=== PATIENT | female | born 1930 | race Caucasian/White ===

== ENCOUNTER → 2018-12-10 | Outpatient (CLI) | payer MEDICARE ==
[~2018-12-10] MED LIST: ASPIRIN81 M1 PO; B COMPLEX PO; CARDIZEM CD120 MG PO; CENTRUM1 TAB PO; CLARITIN10 MG PO; COUMADIN5 M2 PO; Coumadin2.5 MG PO; DIGOXIN0.125 MG PO; FLORINEF0.1 MG PO; OSCAL,OYSTER S500 MG PO; VITAMIN D1000 IU PO; [UNRECOGNIZED DRUG - OTHER] PO
[2018-12-10 10:15] LABS: HEMATOCRIT 42.9 % (37.0-47.0); HEMOGLOBIN 13.7 g/dl (12.0-16.0); MEAN CELL VOLUME 98.2 fl (81.0-99.0); MEAN CORPUSCULAR HGB 31.4 pg (27.0-31.0); MEAN CORPUSCULAR HGB CONC 31.9 g/dl (33.0-37.0); MEAN PLATELET VOLUME 9.5 fl (9.6-12.3); RED BLOOD COUNT 4.37 10*6/uL (4.10-5.10); RED CELL DISTRI WIDTH 12.7 % (0-14.5); WHITE BLOOD COUNT 9.4 10*3/uL (4.8-10.8)
[2018-12-10 10:44] LABS: INTERNATIONAL NORM RATIO 2.6 (2.0-3.5)
[2018-12-10 10:46] LABS: ALBUMIN 3.7 gm/dl (3.1-4.5); ALKALINE PHOSPHATASE 97 U/L (45-117); BUN 19 mg/dl (7-24); CHLORIDE 106 mmol/L (98-107); CHOLESTEROL 210 mg/dL (<200); CREATININE 0.93 mg/dL (0.55-1.02); SGOT/AST 18 IU/L (3-35); SGPT/ALT 26 U/L (12-78); SODIUM 142 mmol/L (136-145); TOTAL PROTEIN 6.8 gm/dL (6.4-8.2); TRIGLYCERIDES 137 mg/dl (<150); VLDL CHOLESTEROL 27 mg/dL (6-40)
[2018-12-10 10:58] LABS: DIGOXIN 2.01 ng/ml (0.8-2.0); HDL CHOLESTEROL 71 mg/dl (40-60); LDL CHOLESTEROL 112 mg/dL (9-159)
== END | disposition home or self-care (01) ==
LOC: LAB 09:31
PROVIDERS: Family Medicine
DX: E55.9 Vitamin D deficiency, unspecified (principal); I50.9 Heart failure, unspecified; M81.0 Age-related osteoporosis without current pathological fracture; E78.00 Pure hypercholesterolemia, unspecified; R53.83 Other fatigue

== ENCOUNTER → 2019-02-13 | Outpatient (CLI) | payer MEDICARE ==
[2019-02-13 14:47] LABS: INTERNATIONAL NORM RATIO 2.3 (2.0-3.5)
== END | disposition home or self-care (01) ==
LOC: LAB 14:05
PROVIDERS: Family Medicine
DX: Z79.01 Long term (current) use of anticoagulants (principal)

== ENCOUNTER 2019-04-23 01:06 | Emergency (ER) | payer MEDICARE ==
[~2019-04-23] VITALS: Ht 147.3 cm; Wt 46.4 kg
[~2019-04-23 01:06] MED LIST changes: +CARDIZEM CD120 M2 PO; -CARDIZEM CD120 MG PO; +VITAMIN D-32000 UNI1 PO; -VITAMIN D1000 IU PO
[2019-04-23 01:40] LABS: INTERNATIONAL NORM RATIO 2.4 (2.0-3.5)
== END 2019-04-23 03:50 | disposition home or self-care (01) ==
LOC: ED 01:06
PROVIDERS: Emergency Medicine
DX: S85.9 Injury of unspecified blood vessel at lower leg level (principal); I10 Essential (primary) hypertension; I48.91 Unspecified atrial fibrillation; K21.9 Gastro-esophageal reflux disease without esophagitis; Z88.8 Allergy status to other drugs, medicaments and biological substances; Z79.899 Other long term (current) drug therapy; Z79.01 Long term (current) use of anticoagulants; Z86.73 Personal history of transient ischemic attack (TIA), and cerebral infarction without residual deficits; W22.8XXA Striking against or struck by other objects, initial encounter; Y93.89 Activity, other specified; Y92.89 Other specified places as the place of occurrence of the external cause; Y99.8 Other external cause status

== ENCOUNTER 2019-04-25 09:38 | Emergency (ER) | payer MEDICARE ==
[~2019-04-25] VITALS: Ht 147.3 cm; Wt 56.2 kg
--- NOTE | ~2019-04-25 | EKG ---
[place], [place] ELECTROCARDIOGRAM REPORT NAME: CHETAN MELLO UNIT #: [id number] ROOM: DOCTOR: EPIPHANY DRAFT REPORT BIRTHDATE: [birth year] [facility] Test Date: 2019-04-25 Test Time: 09:56:19 Pat Name: CHETAN MELLO Department: Room: Gender: F Sanitation Technician: : 1930 Requested By: JONI HIDALGO Order Number: [id number] Reading MD: Josue Fisher MD Measurements Intervals [place] Rate: 70 P: 69 [place]: 177 QRS: 47 QRSD: 87 T: 33 QT: 374 QTc: 404 Interpretive Statements Sinus rhythm RSR' in V1 or V2, right VCD or RVH Compared to ECG 12/25/2018 00:33:54 No significant changes Electronically Signed On 04-26-2019 12:20:52 PST by Josue Fisher MD CM:EKGRPT:ELECTROCARDIOGRAM REPORT [id number] JONI MORRISSEY DRAFT REPORT JONI HIDALGO M.D.
[2019-04-25 10:05] LABS: HEMATOCRIT 40.1 % (37.0-47.0); MEAN CELL VOLUME 96.9 fl (81.0-99.0); MEAN CORPUSCULAR HGB 31.4 pg (27.0-31.0); MEAN CORPUSCULAR HGB CONC 32.4 g/dl (33.0-37.0); MEAN PLATELET VOLUME 9.4 fl (9.6-12.3); PLATELET COUNT AUTOMATED 274 10*3/uL (130-400); RED BLOOD COUNT 4.14 10*6/uL (4.10-5.10); RED CELL DISTRI WIDTH 13.2 % (0-14.5); WHITE BLOOD COUNT 10.8 10*3/uL (4.8-10.8)
[2019-04-25 10:19] LABS: ALBUMIN 3.5 gm/dl (3.1-4.5); ALKALINE PHOSPHATASE 92 U/L (45-117); BUN 16 mg/dl (7-24); CHLORIDE 107 mmol/L (98-107); CREATININE 0.85 mg/dL (0.55-1.02); POTASSIUM 3.9 mmol/L (3.5-5.1); SGOT/AST 18 IU/L (3-35); SGPT/ALT 20 U/L (12-78); SODIUM 141 mmol/L (136-145); TOTAL PROTEIN 6.8 gm/dL (6.4-8.2)
[2019-04-25 10:21] LABS: INTERNATIONAL NORM RATIO 2.9 (2.0-3.5)
[2019-04-25 10:27] LABS: ATYPICAL LYMPHS 6 % (0-0); PLATELET SUFFICIENCY NORMAL (NORMAL); TOTAL CELLS COUNTED 100 #CELLS
[2019-04-25] MEDS ORDERED: KEFLEX500 M1 PO (11:55)
== END 2019-04-25 12:00 | disposition home or self-care (01) ==
LOC: ED 09:38
PROVIDERS: Emergency Medicine
DX: S80.12XA Contusion of left lower leg, initial encounter (principal); L03.116 Cellulitis of left lower limb; I48.91 Unspecified atrial fibrillation; K21.9 Gastro-esophageal reflux disease without esophagitis; Z88.8 Allergy status to other drugs, medicaments and biological substances; Z79.899 Other long term (current) drug therapy; Z79.01 Long term (current) use of anticoagulants; Z86.718 Personal history of other venous thrombosis and embolism; W22.8XXA Striking against or struck by other objects, initial encounter; Y93.89 Activity, other specified; Y92.89 Other specified places as the place of occurrence of the external cause; Y99.8 Other external cause status

== ENCOUNTER 2019-04-27 13:11 | Inpatient (IN) | payer MEDICARE ==
[~2019-04-27] VITALS: Ht 147.3 cm; Wt 44.2 kg
[~2019-04-27 13:11] MED LIST changes: +KEFLEX500 M1 PO
[2019-04-27 13:12] VITALS: BP 91/62
[2019-04-27 14:08] LABS: BASO % 0.3 % (0.0-1.0); EOS # 0.1 10*3/uL (0.0-0.4); EOS % 0.4 % (1.0-4.0); HEMATOCRIT 35.4 % (37.0-47.0); HEMOGLOBIN 11.7 g/dl (12.0-16.0); LYMPH # 3.1 10*3/uL (1.3-4.4); LYMPH % 22.6 % (27.0-41.0); MEAN CORPUSCULAR HGB 32.1 pg (27.0-31.0); MEAN CORPUSCULAR HGB CONC 33.1 g/dl (33.0-37.0); MEAN PLATELET VOLUME 9.4 fl (9.6-12.3); MONO # 1.1 10*3/uL (0.1-1.0); MONO % 7.7 % (3.0-9.0); NEUT # 9.4 10*3/uL (2.3-7.9); NEUT % 68.2 % (47.0-73.0); PLATELET COUNT AUTOMATED 278 10*3/uL (130-400); RED BLOOD COUNT 3.65 10*6/uL (4.10-5.10); RED CELL DISTRI WIDTH 13.2 % (0-14.5); WHITE BLOOD COUNT 13.8 10*3/uL (4.8-10.8)
[2019-04-27 14:16] LABS: ACT PARTIAL THROMBO TIME 42.6 SECONDS (20.0-32.1); INTERNATIONAL NORM RATIO 2.9 (2.0-3.5)
[2019-04-27 14:25] LABS: ALBUMIN 3.5 gm/dl (3.1-4.5); ALKALINE PHOSPHATASE 90 U/L (45-117); BUN 20 mg/dl (7-24); CHLORIDE 107 mmol/L (98-107); CREATININE 0.88 mg/dL (0.55-1.02); LIPASE 98 U/L (73-393); SGOT/AST 14 IU/L (3-35); SGPT/ALT 19 U/L (12-78); SODIUM 139 mmol/L (136-145); TOTAL PROTEIN 6.6 gm/dL (6.4-8.2)
[2019-04-27 14:31] LABS: TROPONIN I < 0.015 ng/ml (<0.045)
[2019-04-27 14:40] LABS: DIGOXIN 1.26 ng/ml (0.8-2.0)
--- NOTE | 2019-04-27 15:08 | NUR ---
PATIENT TAKEN TO BSC. NO ISSUES OR CONCERNS AT THIS TIME.
[2019-04-27 15:30] VITALS: BP 102/63
--- NOTE | 2019-04-27 16:30 | NUR ---
A 88, admitted to 5E, under the services of IVONE John DO with a diagnosis of Ambulatory dysfunction. Chief complaint is cellulitis of LLE. Patient arrived via stretcher from ER. Monitor applied. Initial assessment completed. Vital signs taken and recorded. IVONE JOHN DO notified of admission to the unit. Orders received. See assessment for past medical history, medications and allergies. Patient and/or family oriented to unit. [address] visitation policy reviewed. Clothing/patient valuable form completed. ADORE BOURGEOIS
[2019-04-27 17:00] VITALS: BP 133/62
[2019-04-27] MEDS ORDERED: JANTOVEN1 MG PO (18:28)
[2019-04-27] MEDS ORDERED: ALENDRONATE SOD70 M1 PO (18:28)
--- NOTE | 2019-04-27 19:00 | NUR ---
ASSUMED CARE FOR THIS PT AT THIS TIME. NO C/O VOICED AT PRESENT TIME. BED IN LOW POSITION W/WHEELS LOCKED AND ALARM ON. CALL LIGHT IN REACH.
[2019-04-27 20:00] VITALS: BP 138/53
--- NOTE | 2019-04-27 22:17 | NUR ---
PT MEDICATED W/TYLENOL FOR C/O LLE PAIN. LLE REMAINS RED/WARM/TENDER/SWOLLEN. WILL MONITOR. CALL LIGHT IN REACH.
[2019-04-28] VITALS: BP 121/46
--- NOTE | 2019-04-28 06:15 | NUR ---
CHETAN MELLO [id number] Please refer to the physician's history and physical for past medical history, comorbid conditions, and allergies. Diagnosis: AMBULATORY DYSFUNCTION,CELLULITIS OF LOWER EXTREMI [place] Score: 22,LOW OR NO RISK WOUND DESCRIPTIONS: Wound Number: 1 Location of the wound: Left lower extremity Type of wound: hematoma Size: 19.0cm x 29.0cm x <0.1cm Tunneling: none Undermining: none Sinus Tract: none Presence of Exudate: none Amount: None Color: Purple, red, yellow Odor: None Periwound Skin Appearance: Edema Wound edges: closed Pain (associated with wound): tender to touch How does patient state this happened? pt stated this happened last saturday while she was getting in her granddaughters car she bumped it and she stated she was seen here three times before being admitted by Dr. Knowles. This nurse asked her about follow up care and she stated if the area opens up she will follow in the wound care center upon discharge. Surface the patient is resting on: Isoflex SKIN PREVENTION RECOMMENDATION: 1. Pressure redistribution support surface as appropriate 2. Elevate heels 3. Remove boots/TEDS every shift and reapply 4. Head of bed 30 degrees as tolerated 5. Assess nutrition and hydration 6. Manage moisture 7. Avoid the use of containment devices while in bed 8. Use absorptive products on surfaces limit layers of linens on bed 9. Turn and reposition every 1-2 hours in bed and every 1 hour in chair as tolerated 10. Weight shifts every 15 minutes while up in chair 11. Offloading with pillows or device to keep heels elevated off bed 12. Monitor skin at least every shift 13. Inspect under medical devices twice a day WOUND TREATMENT RECOMMENDATIONS: May need surgical consult if ultrasound studies suggest.
[2019-04-28 06:31] LABS: HEMATOCRIT 32.1 % (37.0-47.0); HEMOGLOBIN 10.3 g/dl (12.0-16.0); MEAN CELL VOLUME 99.1 fl (81.0-99.0); MEAN CORPUSCULAR HGB 31.8 pg (27.0-31.0); MEAN CORPUSCULAR HGB CONC 32.1 g/dl (33.0-37.0); MEAN PLATELET VOLUME 9.8 fl (9.6-12.3); PLATELET COUNT AUTOMATED 242 10*3/uL (130-400); RED BLOOD COUNT 3.24 10*6/uL (4.10-5.10); RED CELL DISTRI WIDTH 13.3 % (0-14.5); WHITE BLOOD COUNT 9.6 10*3/uL (4.8-10.8)
[2019-04-28 06:49] LABS: CHLORIDE 110 mmol/L (98-107); POTASSIUM 4.3 mmol/L (3.5-5.1); SODIUM 142 mmol/L (136-145)
[2019-04-28 07:11] LABS: ALBUMIN 2.7 gm/dl (3.1-4.5); ALKALINE PHOSPHATASE 81 U/L (45-117); ATYPICAL LYMPHS 2 % (0-0); BUN 20 mg/dl (7-24); CHOLESTEROL 163 mg/dL (<200); DIGOXIN 1.23 ng/ml (0.8-2.0); HDL CHOLESTEROL 62 mg/dl (40-60); LDL CHOLESTEROL 92 mg/dL (9-159); PHOSPHOROUS 2.9 mg/dL (2.5-4.9); PLATELET SUFFICIENCY NORMAL (NORMAL); SGOT/AST 13 IU/L (3-35); SGPT/ALT 17 U/L (12-78); TOTAL CELLS COUNTED 100 #CELLS; TOTAL PROTEIN 5.4 gm/dL (6.4-8.2); TRIGLYCERIDES 46 mg/dl (<150); VLDL CHOLESTEROL 9 mg/dL (6-40)
[2019-04-28 07:22] LABS: INTERNATIONAL NORM RATIO 3.6 (2.0-3.5)
--- NOTE | 2019-04-28 07:34 | NUR ---
Nursing screen and Occupational Therapy referral received. Thank you. April Alfredo OTR/l
[2019-04-28 07:49] LABS: VITAMIN D, 25-HYDROXY 51.8 ng/mL (30-100)
[2019-04-28 08:00] VITALS: BP 137/45
--- NOTE | 2019-04-28 08:03 | NUR ---
PHYSICAL THERAPY Screen received as well as orders for Physical Therapy will follow thank you Ama Talamantes PT
--- NOTE | 2019-04-28 09:42 | NUR ---
[place] given per patient c/o pain in LLE that is rated 7/10. Will monitor.
--- NOTE | 2019-04-28 10:30 | NUR ---
[place] not effective. Patient states it might have helped a little bit. Patient became nauseated after ambulating to bathroom.
--- NOTE | 2019-04-28 11:14 | NUR ---
[facility] Worker in to talk to patient. Patient states lives at HOME with ALONE WITH NIECE LOOKING IN ON HER. There are FEW steps in the home. Physician: DAVION Pharmacy: [facility] Home health services: NONE Patient's level of ADLs: INDEPENDENT Patient has working utilities: YES DME: [employer] Follow-up physician's appointment after d/c: WILL BE MADE BY HOSPITALIST NURSE DIRECTOR ON DISCHARGE Does patient want to access PORTAL?: NO Discharge plan PT LIVES AT HOME ALONE BUT HAS A NEICE THAT LOOKS IN ON HER. STATES SHE WOULD LIKE TO GO HOME BUT IF SHE NEEDS TO GO SOMEWHERE SHE WOULD LIKE TO GO TO [facility]HAB SU[facility]ES. EXPLAINED TO PT I WOULD CHECK FOR BED AVAILABILTIY AT REHAB SUITES BUT THEY ARE USUALLY FULL. WILL CONTINUE TO FOLLOW. WILL HAVE A RIDE HOME PER PT.. DEBRA HERNANDEZ
--- NOTE | 2019-04-28 11:20 | NUR ---
Patient became nauseated and had 1 epidsode of emesis.
--- NOTE | 2019-04-28 11:56 | NUR ---
INFORMED PT THAT THERE ARE NO BEDS AVAILABLE AT REHAB SU[facility], PT SECOND CHOICE IS [facility]. WILL CONTINUE TO FOLLOW.
[2019-04-28 12:00] VITALS: BP 134/83
--- NOTE | 2019-04-28 13:00 | NUR ---
PRECERT is required. Will need PT/OT Evals to complete referral. ALAYNA received notice the patient would like to be referred to [facility] since has no beds available. ALAYNA faxed referral to [facility]. -ALAYNA Benton
--- NOTE | 2019-04-28 13:45 | NUR ---
Occupational Therapy evaluation completed on 5 with full eval to follow. Precautions include fall risk;bed/chair alarm,impaired cognition,moderate complexity level 54178. Recomend OT per POC and SNF to enable retur home alone at indep level. Thank you. Amanda Alfredo OTr/l
--- NOTE | 2019-04-28 14:46 | NUR ---
Nutritional Support Services Note: Labs reflect moderation protein calorie malnutrition with albumin at 2.7. Previous admission weight on 01/25/19 was 91#. Cuurrent wt 98#. Noted to be a 2-13# weight loss. Pt is at normal weight for her. Recommend Ensure po TID with meals to help increase kcal and protein. Will follow as needed. Pt is eating 100% of meals. Constance Philippe Rdn Ld
--- NOTE | 2019-04-28 15:11 | NUR ---
PHYSICAL THERAPY Pt carolinaal completed pt moderate complexity 30744 recomend SNF at discharge PT to work on transfers, amb, strengthening, balanc and safety. Thank you Ama Talamantes PT
--- NOTE | 2019-04-28 15:56 | NUR ---
JONAH IS OUT OF NENTWORK WITH PT INSURANCE AND SHE HAS NO OUT OF NETWORK BENEFITS. WILL INFORM PT AND SEE WHAT HER PLANS ARE FOR DISCHARGE.
[2019-04-28 16:00] VITALS: BP 131/44
--- NOTE | 2019-04-28 16:08 | NUR ---
SPOKE WITH PT AND SHE WOULD LIKE REFERRAL MADE TO [facility] TO SEE IF THEY WILL TAKE HER INSURANCE.
--- NOTE | 2019-04-28 19:00 | NUR ---
ASSUMED CARE FOR THIS PT AT THIS TIME. NO C/O VOICED. LLE HEMATOMA REMAINS INTACT.
[2019-04-28 20:00] VITALS: BP 146/48
[2019-04-29] VITALS: BP 140/52
--- NOTE | 2019-04-29 00:02 | NUR ---
PT C/O NAUSEA EARLIER, NO VOMITING. PT TEACHING GIVEN ON PRN ZOFRAN AVAILABLE FOR N/V. PT DENIES ANY FURTHER NAUSEA. CALL LIGHT IN REACH.
--- NOTE | 2019-04-29 05:23 | NUR ---
PT MEDICATED W/TYLENOL FOR C/O LLE PAIN 07/06. PT RESTING QUIETLY IN BED. PT ADVISED IF TYLENOL WAS INEFFECTIVE, SHE HAS NORCO FOR PAIN WELL. PT STATES THE NORCO MADE HER VOMIT YESTERDAY. CALL LIGHT IN REACH W/BED ALARM ON.
[2019-04-29 06:44] LABS: BASO % 0.3 % (0.0-1.0); EOS # 0.1 10*3/uL (0.0-0.4); EOS % 0.9 % (1.0-4.0); HEMATOCRIT 32.9 % (37.0-47.0); HEMOGLOBIN 10.7 g/dl (12.0-16.0); LYMPH # 3.5 10*3/uL (1.3-4.4); LYMPH % 30.3 % (27.0-41.0); MEAN CELL VOLUME 98.5 fl (81.0-99.0); MEAN CORPUSCULAR HGB CONC 32.5 g/dl (33.0-37.0); MEAN PLATELET VOLUME 9.8 fl (9.6-12.3); MONO # 0.9 10*3/uL (0.1-1.0); MONO % 7.7 % (3.0-9.0); NEUT % 60.5 % (47.0-73.0); PLATELET COUNT AUTOMATED 247 10*3/uL (130-400); RED BLOOD COUNT 3.34 10*6/uL (4.10-5.10); RED CELL DISTRI WIDTH 13.2 % (0-14.5); WHITE BLOOD COUNT 11.5 10*3/uL (4.8-10.8)
--- NOTE | 2019-04-29 07:21 | NUR ---
PRECERT is required for SNF. [facility] is out of network. OPERATIONS OFFICER received notice patient would like to be referred to [facility]. OPERATIONS OFFICER faxed new referral to [facility]. -ALAYNA Benton
[2019-04-29 07:31] LABS: INTERNATIONAL NORM RATIO 2.3 (2.0-3.5)
[2019-04-29 08:00] VITALS: BP 130/60
--- NOTE | 2019-04-29 08:00 | NUR ---
VS STABLE- A&O X3, HERIBERTO, COLOR IS GOOD, LEFT LOWER EXTREMITY RED SWOLLEN AND WARM TO TOUCH, OTHERWISE SKIN WARM DRY AND INTACT, CAP REFILL <3, SKIN TURGOR IS NON-TENTING, HEART SOUNDS NORMAL, 70 BPM, LUNGS CLEAR THROUGHOUT, PO2 97% ON R/A, ABD SOFT NON-DISTENDED NON-TENDER, IV SITE IN RIGHT AC NO S/S OF INFECTION, PT PLEASANT AND COOPERATIVE RESTING IN BED, NO FURTHER COMPLAINTS AT THIS TIME WILL CONTINUE TO ASSESS. QUOC DE SANTIAGO SPNRCC
--- NOTE | 2019-04-29 08:53 | NUR ---
PT COMPLAIN OF "NAUSEA". REQUESTED FOR MED. ZOFRAN 4MG IVP BY NADINE ATKINS RN. WILL CONTINUE TO ASSESS.
--- NOTE | 2019-04-29 09:10 | NUR ---
PHYSICAL THERAPY Patient seen this am 1:1 for therapy visit and was supine in bed upon therapist arrival. Patient identified by name / and reports 4/10 L LE pain from recent Hematoma. Patient transfers supine to sit EOB with MIN A x 1, then sit to stand, CGA with use of wh walker standing support. Patient ambulates CGA, wh walker, 45'x 2, demonstrating antalgic "step to" gait pattern. Patient needed v/c for improved heel strike and was a little unsteady during all turns. Patient returned to supine in bed and remained with call light, tray table, telephone and bed alarm for safety. Will continue per POC as tolerated, total treatment time 17 minutes. Dionicio Guaman, SAND MILLER
--- NOTE | 2019-04-29 10:16 | NUR ---
ZOFRAN WAS EFFECTIVE. DENIES N/V AT THIS TIME. QUOC DE SANTIAGO SPNRCC
[2019-04-29 12:00] VITALS: BP 132/44
--- NOTE | 2019-04-29 13:16 | NUR ---
PT HAS BEEN REFERRED TO [facility]. WILL REQUIRE A PRECERT BEFORE GOING. WILL CONTINUE TO FOLLOW.
--- NOTE | 2019-04-29 14:30 | NUR ---
OT NOTE Pt was seen this P.M. 1:1 for 15 minute OT session. Upon arrival pt was sitting upright in the recliner. Pt identified by name and and had no complaints at this time. Pt completed sit to stand from chair level with Johny and use of w/w for UE support. Functional mobility was then completed to the bathroom with CGA and use of w/w for UE support. There she trasnferred on to standard commode with CGA and use of grab bar and off with Johny and use of grab bar. Clothing management completed with CGA for safety due to being unsteady when standing without UE support. Pt then completed functional mobility back to the recliner where she was left sitting reclined with call light in hand, tray table in place, and phone in reach. Continue with rec D/C plan to SNF. CLARA Casper/Kamala
[2019-04-29 16:00] VITALS: BP 144/47
[2019-04-29 20:00] VITALS: BP 145/55
--- NOTE | 2019-04-29 21:52 | NUR ---
PRN TYLENOL ADMINISTERED FOR PT C/O LEFT LEG PAIN. SITE IS RED AND SWOLLEN. PT LIMPS ON LEG AND AMBULATES WITH HER WALKER WITH ASSISTANCE TO THE BATHROOM. GAIT IS UNSTEADY. WILL CONTINUE TO MONITOR AND REASSESS.
[2019-04-30] VITALS: BP 134/51
[2019-04-30 06:58] LABS: INTERNATIONAL NORM RATIO 1.7 (2.0-3.5)
--- NOTE | 2019-04-30 07:58 | NUR ---
PRECERT is required for SNF. Awaiting acceptance from [facility] and PRECERT to be started. -ALAYNA Benton
[2019-04-30 08:00] VITALS: BP 139/49
--- NOTE | 2019-04-30 08:40 | NUR ---
PHYSICAL THERAPY Patient seen this am 1;1 for therapy visit and was resting supine in bed upon therapist arrival. Patient identified by name / and voices no c/o's pain at this time. Patient transfers supine to sit EOB with MIN A, then sit to stand CGA x 1. Patient ambulates with use of wh walker, CGA, 50'x 2, demonstrating L side "limping" gait pattern, decreased stride and slow yeni. Patient still fatigues quickly, needing seated rest between gait trials, including v/c for improved walker safety / navigation, especially during all turns. Patient returend to supine in bed and remained with call light, tray table, telephone and bed alarm. Will continue per POC as tolerated, total treatment time 17 minutes. Dionicio Guaman, PATIENT'S LIBRARIAN
--- NOTE | 2019-04-30 08:41 | NUR ---
PT UP AMBULATING IN HALLWAYS WITH WALKER WITH PT/ OT
--- NOTE | 2019-04-30 08:50 | NUR ---
OT NOTE Pt was seen this A.m. 1:1 for 15 minute OT session. Upon arrival pt was supine in bed. Pt identified by name and and had no complaints at this time. Pt transferred supine to sit EOB with Johny for assist with UB. While sitting EOB pt donned B socks with SBA. Sit to stand completed from bed level with Johny and use of w/w for UE support. Functional mobility was then completed into the bathroom with CGA and use of w/w. There she transferred on/off standard commode with CGA and use of grab bar for UE support. Clothing management completed with CGA and toilet hygiene completed with supervision while seated. Pt then stood sink side while washing her hands with CGA for safety. Pt then transferred back into bed sit to supine with SBA. There she was left with call light in hand, tray table in place, and bed alarm activated for safety. Continue with rec D/C plan to SNF. PURA Casper
--- NOTE | 2019-04-30 08:52 | NUR ---
PRECERT is required for SNF. Awaiting acceptance from [facility] to start PRECERT. CENTER DIRECTOR faxed updates to [facility]. -ALAYNA Benton
--- NOTE | 2019-04-30 11:42 | NUR ---
PRECERT has been started for [facility]. Patient has been accepted to [facility]. -ALAYNA Benton
[2019-04-30 12:00] VITALS: BP 153/50
--- NOTE | 2019-04-30 12:00 | NUR ---
DR SEGUNDO AND DR HOLT NOTIFIED OF PT HAVING DIARRHEA
--- NOTE | 2019-04-30 12:12 | NUR ---
PT MEDICATED WITH TYLENOL FOR C/O LEFT LEG PAIN. PT RATES PAIN 5/10 WILL MONITOR
--- NOTE | 2019-04-30 12:24 | NUR ---
PT HAS BEEN ACCEPTED TO [facility] AND PRECERT HAS BEEN STARTED. WILL CONTINUE TO FOLLOW.
[2019-04-30 16:00] VITALS: BP 144/43
[2019-04-30 20:00] VITALS: BP 138/51
--- NOTE | 2019-04-30 20:00 | NUR ---
RESTING IN BED. RESPIRATIONS EASY. LUNGS DIMINISHED, CLEAR. PULSE OX 99% RA. HEMATOMA NOTED TO LLE. CALL LIGHT WITHIN REACH. NO VOICED COMPLAINTS
[2019-05-01] VITALS: BP 158/60
--- NOTE | 2019-05-01 00:30 | NUR ---
SLEEPING. RESPIRATIONS EASY. VSS. CALL LIGHT WITHIN REACH. BED ALARM MAINTAINED FOR SAFETY
--- NOTE | 2019-05-01 03:00 | NUR ---
24 HR chart check completed.
--- NOTE | 2019-05-01 06:00 | NUR ---
SLEPT THROUGHOUT NIGHT WITH NO DISTRESS NOTED. RESPIRATIONS EASY. CALL LIGHT WITHIN REACH. NO VOICED COMPLAINTS THIS SHIFT. BED ALARM MAINTAINED FOR SAFETY
[2019-05-01 06:55] LABS: HEMATOCRIT 35.2 % (37.0-47.0); HEMOGLOBIN 11.3 g/dl (12.0-16.0); MEAN CELL VOLUME 97.8 fl (81.0-99.0); MEAN CORPUSCULAR HGB 31.4 pg (27.0-31.0); MEAN CORPUSCULAR HGB CONC 32.1 g/dl (33.0-37.0); MEAN PLATELET VOLUME 9.8 fl (9.6-12.3); PLATELET COUNT AUTOMATED 295 10*3/uL (130-400); RED CELL DISTRI WIDTH 13.1 % (0-14.5); WHITE BLOOD COUNT 10.8 10*3/uL (4.8-10.8)
--- NOTE | 2019-05-01 07:00 | NUR ---
VS STABLE- A&O X3, HERIBERTO, COLOR IS GOOD, REDNESS SWELLING AND TENDERNESS NOTED TO LEFT LOWER EXTREMITY, SKIN WARM DRY AND INTACT OTHERWISE, CAP REFILL <3, SKIN TURGOR IS NON-TENTING, HEART SOUNDS NORMAL, 68 BPM, LUNG SOUNDS CLEAR DIMINISHED, PO2 97% ON ROOM AIR, RESPIRATIONS 16, ABD SOFT NON-TENDER NON-DISTENDED, BOWEL SOUNDS X4, IV SITE IN RA NO S/S OF INFECTION, PATIENT PLEASANT RESTING IN BED, NO FURTHER COMPLAINTS AT THIS TIME WILL CONTINUE TO ASSESS. QUOC DE SANTIAGO SPCC
[2019-05-01 07:01] LABS: BUN 16 mg/dl (7-24); CHLORIDE 110 mmol/L (98-107); POTASSIUM 3.9 mmol/L (3.5-5.1); SODIUM 143 mmol/L (136-145)
[2019-05-01 07:10] LABS: INTERNATIONAL NORM RATIO 1.4 (2.0-3.5)
--- NOTE | 2019-05-01 07:44 | NUR ---
PT RESTING IN BED NO DISTRESS NOTED. WILL MONITOR
[2019-05-01 07:49] LABS: ATYPICAL LYMPHS 1 % (0-0); PLATELET SUFFICIENCY NORMAL (NORMAL); TOTAL CELLS COUNTED 100 #CELLS
[2019-05-01 08:00] VITALS: BP 132/72
--- NOTE | 2019-05-01 08:35 | NUR ---
OT NOTE PATIENT IDENTIFIED BY NAME AND DATE OF . PATIENT SEEN 1:1 OT THIS DATE 24 MINUTES. PATIENT IN BED UPON ARRIVAL. PATIENT COMPLETED SUPINE TO SIT EOB CGA. COMPLETE ADL SEATD EOB UB BATHING SBA AFTER POLANCO AND LB BATHING MIN A LEFT LE. COMPLETED UB/LB DRESSING MIN A YAYA GOWN AND SOCKS. PATIENT COMPLETED SIT TO STAND FROM BED CGA WITH MIN VERBAL CUES PROPER HAND PLACEMENT AND SAFETY SIT TO STAND FROM BED DURING STANDING COMPONENTS ADL TASKS THIS DATE. COMPLETED SIT TO SUPINE BED CGA. BED ALARM IN TACT AND CALL LIGHT WITHIN REACH. CONTINUE TOWARDS PLAN OF CARE. MAURICE ELIZABETH/Kamala
--- NOTE | 2019-05-01 08:47 | NUR ---
PT STATED "PAIN 4/10" AND REQUESTED MED. NORCO 1 TAB GIVEN PO. WILL CONTINUE TO ASSESS. QUOC DE SANTIAGO SPGRACIA
--- NOTE | 2019-05-01 10:30 | NUR ---
PHYSICAL THERAPY Patient seen this am 1;1 for therapy visit and was supine in bed upon therapist arrival. Patient identified by name / and reports mild 2/10 L LE pain with increased redness around Hematoma area. Patient was very pleasant, transfering supine to sit EOB, MIN A x 1, then sit to stand CGA. Patient ambulates with use of wh walker, 50'x 2, CGA, demonstrating slow yeni, increased fatigue and antalgic gait pattern. Patient returned to EOB sit and following brief rest performed seated B LE therex, all planes, x 15 reps each to increase LE strength. Patient transfers back to supine in bed and remained with call light, tray table, telephone, bed alarm for safety. Will continue per POC as tolerated, total treatment time 23 minutes. Dionicio Guaman, HOG DROPPER
--- NOTE | 2019-05-01 11:58 | NUR ---
CONCRETE [employer]ODUCTS MACHINE OPERATOR was notified the patient does not want to go to [facility] and will be returning home. ALAYNA spoke with Switch Maker Hannah about this and she has already notified RN Hospitalist Coordinator Georgina. ALAYNA notified [facility]. -ALAYNA Benton
[2019-05-01 12:00] VITALS: BP 138/50
--- NOTE | 2019-05-01 12:00 | NUR ---
TAP BUILDER IN TO TALK TO PT. PT STATES SHE FEELS BETTER AND IS DOING BETTER WALKING AND NOW JUST WANTS TO GO HOME. ASKED HER IF SHE HAD HELP AT HOME, SHE STATES SHE HAS A LADY FRIEND THAT COULD HELP HER AND ALSO HER GRAND DAUGHTER. TALKED WITH PT ABOUT HOME HEALTH AND SHE STATES I DON'T THINK I NEED IT. I HAVE A WALKER AND A WHEEL CHAIR AT HOME IF I NEED THEM. ARIELLA IN HOSPITALIST OFFICE INFORMED THAT PT JUST WANTS TO GO HOME NOW AND NOT TO REHAB.
[2019-05-01] MEDS ORDERED: COUMADIN2 M1 PO (14:25)
--- NOTE | 2019-05-01 15:00 | NUR ---
DR HOLT NOTIFIED OF PT HAVING DIARRHEA
--- NOTE | 2019-05-01 15:26 | NUR ---
OCCUPATIONAL THERAPY CO-SIGN I approve of the Occupational Therapy notes written above. OLGA BANKS OTR/Kamala
[2019-05-01 16:00] VITALS: BP 139/45
--- NOTE | 2019-05-01 16:47 | NUR ---
PT REQUESTED AND GIVEN TYLENOL FOR C/O LEFT LE PAIN WILL MONITOR
[2019-05-01 20:00] VITALS: BP 161/65
--- NOTE | 2019-05-01 20:50 | NUR ---
RESTING IN BED. HAD A SCANT AMOUNT OF LOOSE STOOL IN WITH URINE; UNABLE TO OBTAIN C-DIFF SPECIMEN AT THIS TIME. LEFT LEG REDDENED/SWOLLEN. PT. HAS IT ELEVATED. VOICES NO C/O AT THIS TIME. CALL LIGHT WITHIN REACH.
--- NOTE | 2019-05-01 22:30 | NUR ---
PT. UP TO BATHROOM. HAD A SMALL AMOUNT OF LOOSE STOOL BUT HAD URINE IN IT; UNABLE TO OBTAIN SPECIMEN FOR C-DIFF. ASSISTED PT. BACK TO BED. PT. USES WALKER & IS STEADY. CALL LIGHT PUT WITHIN PT'S REACH.
--- NOTE | 2019-05-01 22:38 | NUR ---
MEDICATED WITH TYLENOL FOR C/O LOWER LEFT CALF/LEG PAIN.
[2019-05-02] VITALS: BP 154/53
--- NOTE | 2019-05-02 01:00 | NUR ---
RESTING IN BED WITH EYES CLOSED. TYLENOL EFFECTIVE.
[2019-05-02 07:01] LABS: INTERNATIONAL NORM RATIO 1.4 (2.0-3.5)
[2019-05-02 08:00] VITALS: BP 153/55
--- NOTE | 2019-05-02 11:35 | NUR ---
PHYSICAL THERAPY Patient supine in bed at time of arrival; patient reports having diarrhea for multiple days now, and requesting to use restroom. Patient transitioned supine->sit requiring CGA/SBA with use of bed rail-- increased time for completion due to pain in (L) LE with movement. Patient performed STS transfer EOB->FWW requiring CGA; followed by ambulation with use of FWW to restroom ~10'x1. Pt performed multiple sit<>stand transfers to/from toilet with 1xUE support on grab bar and CGA, with completion of hygiene/dressing tasks. No LOB observed. Pt performed gait training with use of FWW and CGA- over level surfaces, for strength, endurance and balance ~60'x2 incorporation 90 and 180 degree directional changes. Pt exhibits slow, antalgic gait. Pt benefits from cues for walker proximity/managment, postural awareness and increasing LE step height to decrease fall risk. Patient performed bed mobility: sit->supine requiring CGA with use of bed rail. Once in bed, patient required Johny for scooting and re-positioning to [facility]. Patient supine at session end with call light and tray table within reach. patient voiced no new c/o's this date. Monica Hinson, SUPERVISOR TICKET SALES
[2019-05-02 12:00] VITALS: BP 133/47
--- NOTE | 2019-05-02 16:19 | NUR ---
PATIENT DISCHARGED TO HOME.
--- NOTE | 2019-05-06 07:54 | NUR ---
PHYSICAL THERAPY CO-SIGN I approve of the Physical Therapy notes written above. Ama Talamantes PT
== END 2019-05-02 17:18 | disposition home or self-care (01) | DRG 603 ==
LOC: ED 13:11 → EDHOLD 14:58 → 5E 14:58
PROVIDERS: Emergency Medicine; Internal Medicine; Registered Nurse; ADMIT Internal Medicine
DX: L03.116 Cellulitis of left lower limb (principal); D68.69 Other thrombophilia; S80.12XA Contusion of left lower leg, initial encounter; L02.416 Cutaneous abscess of left lower limb; I48.91 Unspecified atrial fibrillation; D72.829 Elevated white blood cell count, unspecified; Z79.01 Long term (current) use of anticoagulants; Z88.8 Allergy status to other drugs, medicaments and biological substances; Z90.710 Acquired absence of both cervix and uterus; Z82.49 Family history of ischemic heart disease and other diseases of the circulatory system; Z80.42 Family history of malignant neoplasm of prostate; Z79.899 Other long term (current) drug therapy

== ENCOUNTER → 2019-05-15 | Outpatient (CLI) | payer MEDICARE ==
[~2019-05-15] MED LIST changes: +ALENDRONATE SOD70 M1 PO; +COUMADIN2 M1 PO; +JANTOVEN1 MG PO
[2019-05-15 14:07] LABS: INTERNATIONAL NORM RATIO 2.7 (2.0-3.5)
== END | disposition home or self-care (01) ==
LOC: LAB 05-12 17:04
PROVIDERS: Family Medicine
DX: I48.91 Unspecified atrial fibrillation (principal); Z79.01 Long term (current) use of anticoagulants

== ENCOUNTER → 2019-06-19 | Outpatient (CLI) | payer MEDICARE ==
[~2019-06-19] MED LIST changes: +CEFUROXIME AXE250 MG PO; +PREDNISONE5 MG PO
[2019-06-19 17:07] LABS: INTERNATIONAL NORM RATIO 2.5 (2.0-3.5)
== END | disposition home or self-care (01) ==
LOC: LAB 13:39
PROVIDERS: Family Medicine
DX: I50.9 Heart failure, unspecified (principal); Z79.01 Long term (current) use of anticoagulants

== ENCOUNTER 2019-06-28 08:40 | Inpatient (IN) | payer MEDICARE ==
[~2019-06-28] VITALS: Ht 142.2 cm; Wt 43.1 kg
[~2019-06-28 08:40] MED LIST changes: -CEFUROXIME AXE250 MG PO; -PREDNISONE5 MG PO
[2019-06-28 08:54] VITALS: BP 118/62
--- NOTE | 2019-06-28 09:00 | NUR ---
PATIENT DENIES WOUNDS. A&OX4.
[2019-06-28 09:13] LABS: BASO % 0.1 % (0.0-1.0); EOS % 0.1 % (1.0-4.0); HEMATOCRIT 39.6 % (37.0-47.0); HEMOGLOBIN 12.8 g/dl (12.0-16.0); LYMPH # 1.6 10*3/uL (1.3-4.4); LYMPH % 18.3 % (27.0-41.0); MEAN CELL VOLUME 96.8 fl (81.0-99.0); MEAN CORPUSCULAR HGB 31.3 pg (27.0-31.0); MEAN CORPUSCULAR HGB CONC 32.3 g/dl (33.0-37.0); MONO # 0.9 10*3/uL (0.1-1.0); MONO % 10.1 % (3.0-9.0); NEUT # 6.2 10*3/uL (2.3-7.9); NEUT % 71.1 % (47.0-73.0); PLATELET COUNT AUTOMATED 251 10*3/uL (130-400); RED BLOOD COUNT 4.09 10*6/uL (4.10-5.10); RED CELL DISTRI WIDTH 13.3 % (0-14.5); WHITE BLOOD COUNT 8.7 10*3/uL (4.8-10.8)
[2019-06-28 09:28] LABS: ACT PARTIAL THROMBO TIME 40.7 SECONDS (20.0-32.1)
[2019-06-28 09:30] LABS: ALBUMIN 3.4 gm/dl (3.1-4.5); ALKALINE PHOSPHATASE 96 U/L (45-117); BUN 18 mg/dl (7-24); CHLORIDE 106 mmol/L (98-107); CREATININE 0.98 mg/dL (0.55-1.02); POTASSIUM 3.8 mmol/L (3.5-5.1); SGOT/AST 16 IU/L (3-35); SGPT/ALT 20 U/L (12-78); SODIUM 138 mmol/L (136-145); TOTAL PROTEIN 6.7 gm/dL (6.4-8.2)
[2019-06-28 09:31] LABS: TROPONIN I < 0.015 ng/ml (<0.045)
[2019-06-28 09:40] LABS: DIGOXIN 1.06 ng/ml (0.8-2.0)
--- NOTE | 2019-06-28 10:12 | NUR ---
PATIENT TAKEN TO 5TH FLOOR AT THIS TIME. BEDSIDE REPORT GIVEN TO AMANDA FLOWERS AT BEDSIDE.
--- NOTE | 2019-06-28 10:29 | NUR ---
A 88, admitted to , under the services of BONIFACIO Gilliam MD with a diagnosis of FLU LIKE ILLNESS. Chief complaint is FEELING WEAK AT HOME. Patient arrived via stretcher from ER. Vital signs taken and recorded. BONIFACIO GILLIAM MD notified of admission to the unit. Orders received. See assessment for past medical history, medications and allergies. Patient and/or family oriented to unit. [facility] visitation policy reviewed. Clothing/patient valuable form completed. AMANDA HENRIQUEZ
[2019-06-28] MEDS ORDERED: JANTOVEN1 MG PO ×2 (10:47→10:48)
--- NOTE | 2019-06-28 14:15 | NUR ---
RSTING QUIETLY SINCE ADMISSION,IV FLUIDS HAVE BEEN STARTED,POOR APPETITE MEDS HAVE BEEN RECONCILED WITH LIST FROM PT
[2019-06-28 16:00] VITALS: BP 140/55
--- NOTE | 2019-06-28 21:58 | NUR ---
PATIENT RESTING WITH NO NEEDS MADE. DENIES PAIN. BED IN LOWEST POSITION, CALL LIGHT IN REACH
[2019-06-29] VITALS: BP 160/78
--- NOTE | 2019-06-29 02:57 | NUR ---
24 HR chart check completed.
[2019-06-29 06:32] LABS: BASO % 0.4 % (0.0-1.0); EOS # 0.1 10*3/uL (0.0-0.4); EOS % 1.6 % (1.0-4.0); HEMATOCRIT 36.7 % (37.0-47.0); HEMOGLOBIN 11.8 g/dl (12.0-16.0); LYMPH # 3.1 10*3/uL (1.3-4.4); LYMPH % 42.5 % (27.0-41.0); MEAN CELL VOLUME 96.1 fl (81.0-99.0); MEAN CORPUSCULAR HGB 30.9 pg (27.0-31.0); MEAN CORPUSCULAR HGB CONC 32.2 g/dl (33.0-37.0); MEAN PLATELET VOLUME 8.9 fl (9.6-12.3); MONO # 0.8 10*3/uL (0.1-1.0); MONO % 11.1 % (3.0-9.0); NEUT # 3.3 10*3/uL (2.3-7.9); NEUT % 44.3 % (47.0-73.0); PLATELET COUNT AUTOMATED 245 10*3/uL (130-400); RED BLOOD COUNT 3.82 10*6/uL (4.10-5.10); RED CELL DISTRI WIDTH 13.4 % (0-14.5); WHITE BLOOD COUNT 7.4 10*3/uL (4.8-10.8)
[2019-06-29 06:40] LABS: INTERNATIONAL NORM RATIO 1.7 (2.0-3.5)
[2019-06-29 06:47] LABS: BUN 14 mg/dl (7-24); CHLORIDE 110 mmol/L (98-107); POTASSIUM 3.9 mmol/L (3.5-5.1); SODIUM 139 mmol/L (136-145)
--- NOTE | 2019-06-29 07:30 | NUR ---
VITAL SIGNS ARE STABLE AT THIS TIME. THE PATIENT IS UP IN BED. A&Ox3. HERIBERTO. SHE IS PLEASANT, COOPERATIVE AND APPROPRIATE. HEART SOUNDS ARE NORMAL. LUNGS ARE DIMINISHED BUT CLEAR. THE PATIENT DOES STATE SHE OCASSIONALLY HAS A NON PRODUCTIVE COUGH. ABDOMEN IS SOFT, NON TENDER AND NON DISTENDED. BSX4. SKIN TURGOR IS GOOD AND NON TENDING. SKIN IS WARM, PINK AND DRY. CAPILLARY REFILL IS LESS THAN 3 SECONDS. 22G IV TO THE LEFT ANTECUBITAL, IT IS INTACT AND FLUSHES WITH EASE. THERE IS NO SURROUNDING REDNESS OR SWELLING TO THE SITE. THE PATIENT HAS NO COMPLAINTS AT THIS TIME. WILL COTNINUE TO MONITOR PATIENT. CHRISTIANO WEBB SPCC
[2019-06-29 08:00] VITALS: BP 138/84
--- NOTE | 2019-06-29 08:30 | NUR ---
PT RESTING IN BED WITH HOB ELEVATED. RESP-EASY AND REGULAR. NO C/O AT THIS TIME. LUNGS DIMINISHED T/O. BED ALARM ON. STUDENT NURSE WITH PT TODAY. CALL LIGHT IN REACH. WILL CON'T TO MONITOR.
--- NOTE | 2019-06-29 08:38 | NUR ---
DR. BAKER IN TO SEE PATIENT. SEE NEW ORDERS. CHRISTIANO WEBB SPNRCC
--- NOTE | 2019-06-29 09:00 | NUR ---
Water Team Leader in to talk to patient. Patient states lives at home alone with her granddaughter who lives in [place] checking in on her periodically. There are 0 steps in the home. There is a wheelchair ramp and a stair glide. Physician: Dr. Man Knowles Pharmacy: [facility] health services: would like [facility] or rehab, unsure at this time Patient's level of ADLs: MINIMAL ASSIST Patient has working utilities: yes DME: walker Follow-up physician's appointment after d/c: she prefers to make her own follow up appt Does patient want to access PORTAL?: no Discharge plan discussed with patient. She lives at home alone with her granddaughter checking in on her periodically. Discussed short term rehab and home health care services. She would like to wait to see how she works with therapy before making a decision. She states she is normally independent in her ADLs and will ambulate with a walker at night time. Her neighbor can provide transportation on discharge. RYAN NICHOLS
--- NOTE | 2019-06-29 09:10 | NUR ---
PHYSICAL THERAPY Yolyal completed pt moderate level of complexity [id number] full report to follow recomend SNF at discharge. PT to work on transfers,balance,strengthening and ambulation. Ama Talamantes PT
--- NOTE | 2019-06-29 09:10 | NUR ---
Occupational therapy orders received and OT evaluation completed in full on floor five. Patient precautions include fall risk, ww use, weakness, and bed alarm. Per OT eval, OT recommends a SNF. Patient would benefit from continued OT treatment to maximize safety and independence with ADLs, mobility, and transfers. Patient complexity is low, 62089. Thank you for the referral. Serina Zamarripa, OTR/L
--- NOTE | 2019-06-29 09:26 | NUR ---
PATIENTS BILATERAL NOSTRILS WERE SWABBED FOR RESPIRATORY VIRUS EVALUATION. SHE TOLERATED WELL. SENT TO LAB. WILL CONTINUE TO MONITOR PATIENT. CHRISTIANO WEBB GRACIA.
--- NOTE | 2019-06-29 09:40 | NUR ---
PATIENT TAKEN TO CT VIA WHEEL CHAIR. PATIENT IN STABLE CONDITION. CHRISTIANO WEBB SPKEVINCC
--- NOTE | 2019-06-29 09:58 | NUR ---
PATIENT RETURNED FROM CT VIA WHEEL CHAIR. STABLE CONDITION. PATIENT ASSISTED BACK INTO HER CHAIR. CHAIR ALARM IS INTACT. WILL CONTINUE TO MONITOR PATIENT. CHRISTIANO RAMOS
--- NOTE | 2019-06-29 11:30 | NUR ---
THE PATIENT IS BACK IN BED TO EAT HER LUNCH. BED ALARM IS INTACT. WILL CONTINUE TO MONITOR PATIENT. CHRISTIANO WEBB GRACIA
--- NOTE | 2019-06-29 11:40 | NUR ---
Nutritional Supporpt Services Note: Appetite was poor per patient due to her not feeling well. She ate 100% for breakfast this morning. Ht.4'8 Wt.95# BMI 21.4- appropriate weight. She refuses a supplement at this time, but will send her a night snack. Labs are wnl. She lives at home alone, encouraged healthy eating. Will follow if needed. Constance Philippe Rdn Ld
[2019-06-29 11:41] VITALS: BP 154/60
--- NOTE | 2019-06-29 11:49 | NUR ---
Patient has received auth for [facility] and is ok to go if medically stable for discharge.
--- NOTE | 2019-06-29 11:54 | NUR ---
Beam Builder in to see patient. Discussed therapy recommending SNF on discharge. She is agreeable. When provided with a list of facilities she chose 1. [facility] [place] and 2. [facility]. tactical deception plans officer notified.
--- NOTE | 2019-06-29 12:31 | NUR ---
Patient requesting [facility]. Faxed demographics to [facility] to check for out of network benefits and faxed referral to [facility]. Requires precert. waiting on review/acceptance.
--- NOTE | 2019-06-29 12:41 | NUR ---
THE PATIENT IS RESTING WITH HER EYES CLOSED IN BED AT THIS TIME. SHE IS EASILY AROUSABLE. BED ALARM INTACT. CALL LIGHT WITHIN REACH. PATIENT HAS NO COMPLAINTS AT THIS TIME. WILL CONTINUE TO MONITOR PATIENT. CHRISTIANO RAMOS
--- NOTE | 2019-06-29 14:36 | NUR ---
[facility] stating patient looks good medically, they are checking benefits on patients insurance. She will require precert.
[2019-06-29 16:00] VITALS: BP 134/50
--- NOTE | 2019-06-29 16:20 | NUR ---
PT RESTING IN BED. RESP-EASY AND REGULAR. NO C/O AT THIS TIME. CALL LIGHT IN REACH. BED ALARM ON. SEE SHIFT ASSESSMENT.
--- NOTE | 2019-06-29 19:27 | NUR ---
PATIENT RESTING IN BED WITH NO NEEDS MADE. DENIES PAIN, OR SHORTNESS OF BREATH. STATES SHE IS FEELING MUCH BETTER THIS EVENING. BED IN LOW POSITION, CALL LIGHT IN REACH
--- NOTE | 2019-06-29 23:32 | NUR ---
24 HR chart check completed.
[2019-06-30] VITALS: BP 155/54
[2019-06-30 06:26] LABS: HEMATOCRIT 37.6 % (37.0-47.0); HEMOGLOBIN 12.2 g/dl (12.0-16.0); MEAN CELL VOLUME 97.4 fl (81.0-99.0); MEAN CORPUSCULAR HGB 31.6 pg (27.0-31.0); MEAN CORPUSCULAR HGB CONC 32.4 g/dl (33.0-37.0); MEAN PLATELET VOLUME 8.9 fl (9.6-12.3); PLATELET COUNT AUTOMATED 254 10*3/uL (130-400); RED BLOOD COUNT 3.86 10*6/uL (4.10-5.10); RED CELL DISTRI WIDTH 13.5 % (0-14.5); WHITE BLOOD COUNT 9.5 10*3/uL (4.8-10.8)
[2019-06-30 06:48] LABS: BUN 17 mg/dl (7-24); CHLORIDE 110 mmol/L (98-107); CREATININE 0.83 mg/dL (0.55-1.02); POTASSIUM 3.9 mmol/L (3.5-5.1); SODIUM 142 mmol/L (136-145)
--- NOTE | 2019-06-30 06:58 | NUR ---
[facility] stating the following on patients insurance check: Days 1-10 is 100% covered. 11-20 is $25/day. 21-100 is $50/day. precert required. Asked [facility] to start precert, waiting on auth
[2019-06-30 07:48] LABS: ATYPICAL LYMPHS 1 % (0-0); PLATELET SUFFICIENCY NORMAL (NORMAL); TOTAL CELLS COUNTED 100 #CELLS
[2019-06-30 08:00] VITALS: BP 156/54
--- NOTE | 2019-06-30 09:17 | NUR ---
PHYSICAL THERAPY TREATMENT TIME: 08:45 AM - 9:05 AM 20 MINUTES Patient presented to therapy in supine with head of bed elevated and bed alarm not activated. Patient has no complaints. Patient gives informed consent for treatment. Patient was identified by name and on wristband. Patient performed supine to sitting at EOB with SBA. Patient sat on EOB with SBA. Patient performed sit to stand from EOB with CGA X 1. Patient performed ambulation with Wh Walker and CGA X 1 for 60' x 3 with one minor LOB on a turn that the patient corrected herself. Patient sit to stand <> low chair with SBA. Patient transferred into bedside chair with SBA. Patient was left in bed side chair with call light within reach and chair alarm tested and attached to patient. Patient was 1:1 with this RESIDENTIAL TECH for 17 minutes total. DG JEFFERY RESIDENTIAL TECH
--- NOTE | 2019-06-30 09:17 | NUR ---
OT NOTE Pt was seen this A.M. 1:1 for 17 minute OT session. Upon arrival pt was supine in bed. Pt identified by name and and had no complaints at this time. Pt transferred supine to sit EOB with SBA. While sitting EOB pt donned B socks with SBA and new gown with SBA. Sit to stand completed from bed level with SBA and use of w/w for UE support. Functional mobility was then completed into the bathroom with SBA and use of w/w. Throughout pt required one verbal prompt for slowing down due to being impulsive and verbal prompt for walker safety due to walking away without it increasing risk of falls. Pt transferred on/off standard commode with SBA. Clothing management completed with CGA for safety. Pt then stood sink side while washing her hands with SBA. Challenged pt's dynamic standing balance needed for increased I and enhanced safety, pt was able to maintain G- standing balance throughout while crossing midline, reaching over all planes, and weight shifting. Pt was left sitting upright in the recliner with call light in hand, tray table in place, and body alarm activated for safety. Continue with rec D/C plan to SNF. CLARA Casper/Kamala
--- NOTE | 2019-06-30 09:55 | NUR ---
PT SITTING UP IN RECLINER CHAIR. RESP-EASY AND REGULAR. NO C/O AT THIS TIME. TOLERATED ROUTINE MED WITH NO PROBLEM. CALL LIGHT IN REACH. SEE SHIFT ASSESSMENT.
--- NOTE | 2019-06-30 10:30 | NUR ---
Customer Operations Intern in to see patient. No new needs or request at this time. When medically stable she will be discharged to [facility]. kit planner following.
--- NOTE | 2019-06-30 13:00 | NUR ---
RESTING IN BED. NO C/O AT THIS TIME. BED ALARM ON. CALL LIGHT IN REACH.
--- NOTE | 2019-06-30 14:08 | NUR ---
Plastic Panel Installer in to see patient. Discussed her walking 60 feet and not qualifying for SNF. She verbalized an understanding and states Dr. John thinks she has pneumonia now. Discussed home health care services and she remains agreeable to [facility].
--- NOTE | 2019-06-30 14:24 | NUR ---
CALLED DR. BAKER MADE AWARE PT WANTING ANITIBIOTICS. ORDERS TAKEN AND REVIEWED/
[2019-06-30 16:00] VITALS: BP 139/50
--- NOTE | 2019-06-30 19:54 | NUR ---
patient resting in bed with no needs made. bed alarm on, bed in low position, call light in reach
[2019-06-30 20:00] VITALS: BP 133/51
[2019-07-01] VITALS: BP 141/50
[2019-07-01 08:00] VITALS: BP 156/57
[2019-07-01] MEDS ORDERED: CEFUROXIME AXE250 MG PO (08:37)
--- NOTE | 2019-07-01 08:40 | NUR ---
OT NOTE Pt was seen this A.M. 1:1 for 15 minute OT session. Upon arrival pt was supine in bed. Pt identified by name and and had no complaints at this time. Pt transferred supine to sit EOB with SBA. While sitting EOB pt donned B socks with SBA. Sit to stand completed from bed level with SBA and use of w/w for UE support. Functional mobility was then completed into the bathroom with SBA and use of w/w. There she transferred on/off standard commode with supervision, clothing management completed with supervision, and toilet hygiene completed with supervision. Pt then stood sink side while washing her hands with supervision. Functional mobility was then completed back to the recliner with SBA and use of w/w. Pt was left sitting upright in the recliner with call light in hand, tray table in place, and bed alarm activated for safety. Continue with POC as able. CLARA Casper/Kamala
[2019-07-01 16:00] VITALS: BP 141/57
[2019-07-01 20:00] VITALS: BP 144/52
[2019-07-02] VITALS: BP 147/58
--- NOTE | 2019-07-02 01:47 | NUR ---
24 HOUR CHART CHECK COMPLETE.
[2019-07-02 08:00] VITALS: BP 146/50
[2019-07-02 08:35] LABS: INTERNATIONAL NORM RATIO 1.3 (2.0-3.5)
[2019-07-02] MEDS ORDERED: PREDNISONE5 MG PO (08:52)
--- NOTE | 2019-07-02 10:30 | NUR ---
OT NOTE Pt was seen this A.M. 1:1 for 14 minute OT session. Upon arrival pt was sitting upright in the recliner. Pt identified by name and and had no complaints at this time. Pt completed sit to stand from chair level with SBA and use of w/w for UE support. Functional mobility was then completed to the bathroom with SBA and use of w/w. Pt transferred on/off standard commode with SBA and then stood sink side while washing her hands with SBA. Functional mobility was then completed back to the recliner where she was left with call light in hand, tray table in place, and body alarm activated for safety. Continue with rec D/C plan to SNF. CLARA Casper/Kamala
--- NOTE | 2019-07-02 10:44 | NUR ---
Faxed home health care referral to [facility]
--- NOTE | 2019-07-02 12:00 | NUR ---
PHYSICAL THERAPY Patient gives informed consent and was identified by name and on wristband. Patient has no complaints. Patient performed all bed mobs with SBA. Patient sit to stand from EOB with SBA-CGA. Patient performed ambulation with Wh Walker and Close Supervision for 60' x 2 with no LOB, SOB OR OTHER DIFFICULTY. Patient was left sitting in bed chair with call light within reach, chair alarm attached and tray table near patient. DG JEFFERY MINING CONSULTANT
--- NOTE | 2019-07-02 13:52 | NUR ---
Discharge instructions reviewed with patient/family. Patient receptive and verbalizes understanding. Follow-up care arranged. Written instructions given to patient/family. EARL WEN
--- NOTE | 2019-07-03 07:55 | NUR ---
PHYSICAL THERAPY CO-SIGN I approve of the Physical Therapy notes written above. Ama Talamantes PT
--- NOTE | 2019-07-03 08:17 | NUR ---
OCCUPATIONAL THERAPY CO-SIGN I approve of the Occupational Therapy notes written above. OLGA BANKS OTR/Kamala
[2019-07-05 17:09] LABS: ADENOVIRUS Negative (Negative); INFLUENZA A Negative (Negative); INFLUENZA B Negative (Negative); METAPNEUMOVIRUS Negative (Negative); PARAINFLUENZA 1 Negative (Negative); PARAINFLUENZA 2 Negative (Negative); PARAINFLUENZA 3 Negative (Negative); RHINOVIRUS Negative (Negative); RSV A Positive (Negative); RSV B Negative (Negative)
== END 2019-07-02 13:52 | disposition home health service (06) | DRG 865 ==
LOC: ED 08:40 → EDHOLD 09:50 → 5E 09:50
PROVIDERS: Emergency Medicine; ADMIT Internal Medicine
DX: B34.9 Viral infection, unspecified (principal); J18.9 Pneumonia, unspecified organism; I48.21 Permanent atrial fibrillation; J20.9 Acute bronchitis, unspecified; I10 Essential (primary) hypertension; R62.7 Adult failure to thrive; K21.9 Gastro-esophageal reflux disease without esophagitis; J45.909 Unspecified asthma, uncomplicated; Z79.01 Long term (current) use of anticoagulants; Z88.8 Allergy status to other drugs, medicaments and biological substances; Z68.21 Body mass index [BMI] 21.0-21.9, adult; Z79.899 Other long term (current) drug therapy; Z80.42 Family history of malignant neoplasm of prostate; Z82.49 Family history of ischemic heart disease and other diseases of the circulatory system

== ENCOUNTER 2019-07-14 11:09 | Emergency (ER) | payer MEDICARE ==
[~2019-07-14 11:09] MED LIST changes: +CEFUROXIME AXE250 MG PO; +PREDNISONE5 MG PO
[2019-07-14 12:12] LABS: HEMATOCRIT 42.9 % (37.0-47.0); HEMOGLOBIN 13.5 g/dl (12.0-16.0); MEAN CELL VOLUME 99.3 fl (81.0-99.0); MEAN CORPUSCULAR HGB 31.3 pg (27.0-31.0); MEAN CORPUSCULAR HGB CONC 31.5 g/dl (33.0-37.0); MEAN PLATELET VOLUME 9.3 fl (9.6-12.3); PLATELET COUNT AUTOMATED 384 10*3/uL (130-400); RED BLOOD COUNT 4.32 10*6/uL (4.10-5.10); RED CELL DISTRI WIDTH 13.6 % (0-14.5); WHITE BLOOD COUNT 16.5 10*3/uL (4.8-10.8)
[2019-07-14 12:24] LABS: BUN 21 mg/dl (7-24); CHLORIDE 104 mmol/L (98-107); CREATININE 0.96 mg/dL (0.55-1.02); POTASSIUM 4.1 mmol/L (3.5-5.1); SODIUM 140 mmol/L (136-145)
[2019-07-14 12:37] LABS: ATYPICAL LYMPHS 3 % (0-0); PLATELET SUFFICIENCY NORMAL (NORMAL); TOTAL CELLS COUNTED 100 #CELLS
[2019-07-14 15:34] LABS: BILIRUBIN NEGATIVE (NEGATIVE); BLOOD 1+ (NEGATIVE); CLARITY CLOUDY (CLEAR); COLOR YELLOW (YELLOW); GLUCOSE NEGATIVE (NEGATIVE); KETONE NEGATIVE (NEGATIVE); LEUKO ESTERASE NEGATIVE (NEGATIVE); NITRITE NEGATIVE (NEGATIVE); PH 8.5 (5.0-9.0); UROBILINOGEN 0.2 E.U./dl (0.2-1.0)
[2019-07-14 15:35] LABS: BACTERIA 2+
== END 2019-07-14 17:16 | disposition home or self-care (01) ==
LOC: ED 11:09
PROVIDERS: Internal Medicine
DX: G45.9 Transient cerebral ischemic attack, unspecified (principal); I48.91 Unspecified atrial fibrillation; M81.0 Age-related osteoporosis without current pathological fracture; K21.9 Gastro-esophageal reflux disease without esophagitis; Z79.899 Other long term (current) drug therapy; Z88.8 Allergy status to other drugs, medicaments and biological substances; Z79.01 Long term (current) use of anticoagulants

== ENCOUNTER → 2019-07-24 | Outpatient (CLI) | payer MEDICARE ==
[2019-07-24 13:31] LABS: INTERNATIONAL NORM RATIO 2.2 (2.0-3.5)
== END | disposition home or self-care (01) ==
LOC: LAB 12:46
PROVIDERS: Family Medicine
DX: Z79.01 Long term (current) use of anticoagulants (principal)

== ENCOUNTER → 2019-08-07 | Outpatient (CLI) | payer MEDICARE | END | disposition home or self-care (01) | LOC: CARD 08:55 | DX: I48.91 Unspecified atrial fibrillation (principal); G45.9 Transient cerebral ischemic attack, unspecified ==

== ENCOUNTER 2019-09-06 07:23 | Emergency (ER) | payer MEDICARE ==
[~2019-09-06] VITALS: Ht 147.3 cm; Wt 45.4 kg
[2019-09-06 07:57] LABS: BASO % 0.3 % (0.0-1.0); EOS # 0.2 10*3/uL (0.0-0.4); EOS % 1.5 % (1.0-4.0); HEMATOCRIT 41.2 % (37.0-47.0); HEMOGLOBIN 13.2 g/dl (12.0-16.0); LYMPH # 4.2 10*3/uL (1.3-4.4); LYMPH % 36.8 % (27.0-41.0); MEAN CORPUSCULAR HGB 30.8 pg (27.0-31.0); MEAN PLATELET VOLUME 8.9 fl (9.6-12.3); MONO # 0.8 10*3/uL (0.1-1.0); MONO % 6.6 % (3.0-9.0); NEUT # 6.3 10*3/uL (2.3-7.9); NEUT % 54.5 % (47.0-73.0); PLATELET COUNT AUTOMATED 285 10*3/uL (130-400); RED BLOOD COUNT 4.29 10*6/uL (4.10-5.10); RED CELL DISTRI WIDTH 13.4 % (0-14.5); WHITE BLOOD COUNT 11.5 10*3/uL (4.8-10.8)
[2019-09-06 08:07] LABS: ACT PARTIAL THROMBO TIME 46.4 SECONDS (20.0-32.1); INTERNATIONAL NORM RATIO 3.9 (2.0-3.5)
[2019-09-06 08:14] LABS: ALBUMIN 3.7 gm/dl (3.1-4.5); ALKALINE PHOSPHATASE 99 U/L (45-117); BUN 19 mg/dl (7-24); CHLORIDE 109 mmol/L (98-107); CREATININE 0.85 mg/dL (0.55-1.02); POTASSIUM 3.7 mmol/L (3.5-5.1); SGOT/AST 17 IU/L (3-35); SGPT/ALT 22 U/L (12-78); SODIUM 141 mmol/L (136-145); TOTAL PROTEIN 6.8 gm/dL (6.4-8.2)
[2019-09-06 08:15] LABS: TROPONIN I < 0.015 ng/ml (<0.045)
== END 2019-09-06 09:17 | disposition home or self-care (01) ==
LOC: ED 07:23
PROVIDERS: Emergency Medicine
DX: R55 Syncope and collapse (principal); R79.1 Abnormal coagulation profile; K21.9 Gastro-esophageal reflux disease without esophagitis; I48.0 Paroxysmal atrial fibrillation; I10 Essential (primary) hypertension; M81.0 Age-related osteoporosis without current pathological fracture; Z86.73 Personal history of transient ischemic attack (TIA), and cerebral infarction without residual deficits; Z79.01 Long term (current) use of anticoagulants; Z88.8 Allergy status to other drugs, medicaments and biological substances; Z79.2 Long term (current) use of antibiotics; Z79.899 Other long term (current) drug therapy; Z90.710 Acquired absence of both cervix and uterus

== ENCOUNTER → 2020-10-06 | Outpatient (CLI) | payer MEDICARE | END | disposition home or self-care (01) | LOC: CARD 13:52 | PROVIDERS: ATTEND Nurse Practitioner Family | DX: I34.8 Other nonrheumatic mitral valve disorders (principal); R53.83 Other fatigue; I50.9 Heart failure, unspecified; I48.91 Unspecified atrial fibrillation ==

== ENCOUNTER → 2020-11-03 | Outpatient (CLI) | payer MEDICARE ==
[2020-11-03 16:46] LABS: BASO % 0.3 % (0.0-1.0); EOS # 0.1 10*3/uL (0.0-0.4); EOS % 0.6 % (1.0-4.0); HEMATOCRIT 41.2 % (37.0-47.0); LYMPH # 4.2 10*3/uL (1.3-4.4); LYMPH % 35.4 % (27.0-41.0); MEAN CELL VOLUME 97.2 fl (81.0-99.0); MEAN CORPUSCULAR HGB 31.4 pg (27.0-31.0); MEAN CORPUSCULAR HGB CONC 32.3 g/dl (33.0-37.0); MEAN PLATELET VOLUME 9.2 fl (9.6-12.3); MONO # 0.7 10*3/uL (0.1-1.0); MONO % 5.9 % (3.0-9.0); NEUT # 6.8 10*3/uL (2.3-7.9); NEUT % 57.5 % (47.0-73.0); PLATELET COUNT AUTOMATED 311 10*3/uL (130-400); RED BLOOD COUNT 4.24 10*6/uL (4.10-5.10); RED CELL DISTRI WIDTH 13.2 % (0-14.5); WHITE BLOOD COUNT 11.9 10*3/uL (4.8-10.8)
[2020-11-03 17:18] LABS: ALBUMIN 3.5 gm/dl (3.1-4.5); ALKALINE PHOSPHATASE 115 U/L (45-117); BUN 15 mg/dl (7-24); CHLORIDE 106 mmol/L (98-107); POTASSIUM 4.2 mmol/L (3.5-5.1); SGOT/AST 14 IU/L (3-35); SGPT/ALT 19 U/L (12-78); SODIUM 138 mmol/L (136-145); TOTAL PROTEIN 7.2 gm/dL (6.4-8.2)
== END | disposition home or self-care (01) ==
LOC: LAB 16:12
PROVIDERS: ATTEND Student in an Organized Health Care Education/Training Program
DX: R53.83 Other fatigue (principal)